=== PATIENT | female | born 1995 | race Caucasian/White ===

== ENCOUNTER 2017-02-01 01:44 | Emergency (ER) | payer OTHER ==
[2017-02-01 02:00] VITALS: BMI 23.3
[2017-02-01 02:03] VITALS: BP 101/68; PULSE 85; RESP 18; TEMP 98.6; O2SAT 100
--- NOTE | 2017-02-01 02:15 | ED PDOC ---
Arrival/HPI - General Chief Complaint: Dental Pain Time Seen by Provider: 02/01/17 02:07 Historian: Patient - History of Present Illness Narrative History of Present Illness (Text): 02/01/17 02:15 Caty Tellez is a 21 year old female, with no significant past medical history, who presents to the Emergency department complaining of right lower dental pain since yesterday. Patient reports associated swelling to the area. Patient denies any fever, chills, sore throat, ear pain, nausea, vomiting, diarrhea, neck pain, headache, dizziness, or any other complaints. Time/Duration: Other (yesterday) Symptom Onset: Gradual Symptom Course: Unchanged Activities at Onset: Rest, Light Context: Home Past Medical History - Provider Review Nursing Documentation Reviewed: Yes - Infectious Disease Hx of Infectious Diseases: None - Psychiatric Hx Depression: No Hx Emotional Abuse: No Hx Physical Abuse: No Hx Substance Use: No - Anesthesia Hx Anesthesia: No - Suicidal Assessment Feels Threatened In Home Enviroment: No Family/Social History - Physician Review Nursing Documentation Reviewed: Yes Family/Social History: No Known Family HX Smoking Status: Never Smoked Hx Alcohol Use: No Hx Substance Use: No Hx Substance Use Treatment: No Allergies/Home Meds Allergies/Adverse Reactions: Allergies No Known Allergies Allergy (Verified 01/05/12 15:59) Review of Systems - Physician Review All systems were reviewed & negative as marked: Yes - Review of Systems Constitutional: Normal Eyes: Normal ENT: Other (+right lower dental pain). absent: Sore Throat Respiratory: Normal Cardiovascular: Normal Gastrointestinal: Normal. absent: Abdominal Pain, Nausea, Vomiting Genitourinary Female: Normal Musculoskeletal: Normal Skin: Normal. absent: Rash Neurological: Normal. absent: Headache, Dizziness Endocrine: Normal Hemo/Lymphatic: Normal Psychiatric: Normal Physical Exam Vital Signs Reviewed: Yes Vital Signs Temp Pulse Resp BP Pulse Ox 02/01/17 02:02 98.6 F 85 18 101/68 100 Temperature: Afebrile Blood Pressure: Normal Pulse: Regular Respiratory Rate: Normal Appearance: Positive for: Well-Appearing, Non-Toxic, Comfortable Pain Distress: None Mental Status: Positive for: Alert and Oriented X 3 - Systems Exam Head: Present: Atraumatic, Normocephalic Pupils: Present: PERRL Extroacular Muscles: Present: EOMI Conjunctiva: Present: Normal Ears: Present: Normal, NORMAL TM, Normal Canal. No: Erythema, TM Bulging, Fluid , TM Perf Mouth: Present: Other (Slight swelling to right oral buccal mucosa, questionable evie to right lower, no facial erythema) Pharnyx: Present: Normal. No: ERYTHEMA, EXUDATE, TONSILS ENLARGED, Peritonsilar Swelling, Uvular Deviation, Strider, Soft Palate/Uvular Edema Nose (External): Present: Atraumatic Nose (Internal): Present: Normal Inspection Neck: Present: Normal Range of Motion. No: Meningeal Signs, MIDLINE TENDERNESS , Paraspinal Tenderness, Lymphadenopathy (No palpable cervical lymph nodes) Respiratory/Chest: Present: Clear to Auscultation, Good Air Exchange. No: Respiratory Distress, Accessory Muscle Use Cardiovascular: Present: Regular Rate and Rhythm, Normal S1, S2. No: Murmurs Abdomen: Present: Normal Bowel Sounds. No: Tenderness, Distention, Peritoneal Signs Neurological: Present: GCS=15, CN II-XII Intact, Speech Normal Skin: Present: Warm, Dry, Normal Color. No: Rashes Lymphatic: No: Cervical Adenopathy Psychiatric: Present: Alert, Oriented x 3, Normal Insight, Normal Concentration Medical Decision Making ED Course and Treatment: 02/01/17 02:15 Impression: 21 year old female complaining of right lower dental pain with associated swelling. Differential Diagnosis include but are not limited to: dental abscess vs. dental pain Plan: -- Augmentin -- Motrin -- Reassess and disposition Progress Notes: On re-evaluation, the patient feels better and is in no acute distress. I have discussed the results and plan with the patient, who expresses understanding. Patient in agreement with plan to discharged home. Patient is stable for discharge. Patient was instructed to follow up with dentist/clinic in 1-2 days or return if symptoms worsen or new concerning symptoms arise. - Medication Orders Current Medication Orders: Discontinued Medications Amoxicillin/Clavulanate Potassium (Augmentin 875 Mg-125 Mg Tab) 1 tab PO ONCE STA PRN Reason: Protocol Stop: 02/01/17 02:18 Last Admin: 02/01/17 02:27 Dose: 1 tab Ibuprofen (Motrin Tab) 600 mg PO STAT STA Stop: 02/01/17 02:19 Last Admin: 02/01/17 02:27 Dose: 600 mg - Scribe Statement The provider has reviewed the documentation as recorded by the Scribe Priya Maria E All medical record entries made by the Avery were at my direction and personally dictated by me. I have reviewed the chart and agree that the record accurately reflects my personal performance of the history, physical exam, medical decision making, and the department course for this patient. I have also personally directed, reviewed, and agree with the discharge instructions and disposition. Disposition/Present on Arrival - Present on Arrival Any Indicators Present on Arrival: No History of DVT/PE: No History of Uncontrolled Diabetes: No Urinary Catheter: No History of Decub. Ulcer: No History Surgical Site Infection Following: None - Disposition Have Diagnosis and Disposition been Completed?: Yes Diagnosis: Toothache, Dental abscess Disposition: HOME/ ROUTINE Disposition Time: 02:20 Patient Plan: Discharge Condition: GOOD Discharge Instructions (ExitCare): Dental Abscess (ED), Dental Caries (ED), Toothache (ED) Additional Instructions: Take meds as prescribed/follow up with your dentist tommorrow Prescriptions: Amoxicillin/Clavulanate [Augmentin 875 MG-125 MG] 1 tab PO BID #20 tab Ibuprofen [Motrin] 600 mg PO Q8 PRN #16 tab PRN Reason: Pain, Moderate (4-7) Referrals: Jf Whalen DMD [Non-Staff] - Follow up with primary
[2017-02-01] MEDS ORDERED: Amoxicillin-Clav 875-125 mg Tab PO STA (02:17)
== END 2017-02-01 02:28 | disposition home or self-care (01) ==
LOC: ED 01:44
DX: K04.7 Periapical abscess without sinus (principal); K08.89 Other specified disorders of teeth and supporting structures